=== PATIENT | female | born 1990 | race Caucasian/White ===

== ENCOUNTER 2017-06-10 09:42 | Emergency (ER) | payer OTHER ==
[~2017-06-10] VITALS: Ht 157.5 cm; Wt 59.0 kg
[~2017-06-10 09:42] MED LIST: ALBU90OI INH; BIRTH CONTROL; CYCL10 PO; DOXY100 PO; ERYT.5TO RIGHTEYE; HYDACE5 PO; HYDGUAL120 PO; IBUP600 PO; IBUP800 PO; KETO10 PO; Keflex500 MG PO; MULVITMINE PO; MUPI1NAS; ONDA4 PO; ONDA4ODT MM; ONDA8 PO; OXYACE5T PO; PENVK500 PO; Percocet 5-3251 EACH PO; RXONDA4ODT MM; Veetids 500500 MG PO; Verotin-Gr Cap1 EACH PO; YASMINE BCP; Zofran Odt4 MG SL
[2017-06-10] MEDS ORDERED: BENZ100A PO (11:27)
[2018-01-30] MEDS ORDERED: Keflex500 MG PO (17:15)
[2018-01-30] MEDS ORDERED: KETO10 PO (17:15)
== END 2017-06-10 12:36 | disposition home or self-care (01) ==
LOC: ER 09:42
DX: J06.9 Acute upper respiratory infection, unspecified (principal); Z88.2 Allergy status to sulfonamides; F41.9 Anxiety disorder, unspecified; F17.210 Nicotine dependence, cigarettes, uncomplicated
CPT/HCPCS: 99283

== ENCOUNTER 2019-01-22 16:20 | Emergency (ER) | payer OTHER ==
[~2019-01-22] VITALS: Ht 157.5 cm; Wt 59.0 kg
[~2019-01-22 16:20] MED LIST changes: -LEVFLO500 PO
[2019-01-22 18:52] LABS: Source, Urine Clean Catch
[2019-01-22 18:58] LABS: Bilirubin, Urine Neg (Neg); Blood, Urine 2+ (Neg); Glucose Qualitative, Urine Neg (Neg); Ketones, Urine 3+ (Neg); Leukocyte Esterase, Urine 2+ (Neg); Nitrite, Urine Neg (Neg); Protein, Urine 1+ (Neg); Urobilinogen, Urine 1+ (Normal)
[2019-01-22 18:59] LABS: Appearance, Urine Clear (Clear); Color, Urine Yellow (P-Yellow)
[2019-01-22 19:06] LABS: Bacteria Many /hpf; Red Blood Cells, Urine 0-2 /hpf (0-2); Squamous Epithelial Cells Few /hpf (Few); White Blood Cells, Urine 25-50 /hpf (0-5)
[2019-01-22] MEDS ORDERED: LEVFLO500 PO (20:04)
== END 2019-01-22 20:20 | disposition home or self-care (01) ==
LOC: ER 16:20
PROVIDERS: Physician Assistant
DX: E86.0 Dehydration (principal); K52.9 Noninfective gastroenteritis and colitis, unspecified; N39.0 Urinary tract infection, site not specified; F17.200 Nicotine dependence, unspecified, uncomplicated; Z88.2 Allergy status to sulfonamides
CPT/HCPCS: 36415; 81001; 81025; 83690; 84145; 86308; 87077; 87086; 87186; 96361; 96374; 96375; 99284-25; J1885; J2405; J7120

== ENCOUNTER → 2019-01-22 | Outpatient (CLI) | payer OTHER ==
[~2019-01-22] MED LIST changes: +BENZ100A PO; +LEVFLO500 PO
[2019-01-22 15:27] LABS: BASOPHILS ABSOLUTE AUTO 0.01 K/mm3 (0.00-0.23); BASOPHILS PERCENT AUTO 0 % (0-2); EOSINOPHILS PERCENT AUTO 0 % (0-6); Hematocrit 32.4 % (33.0-51.0); Hemoglobin 11.2 g/dL (11.5-16.0); IMMATURE GRAN ABSOLUTE AUTO 0.02 K/mm3 (0.00-0.10); IMMATURE GRAN PERCENT AUTO 0 % (0-1); LYMPHOCYTES PERCENT AUTO 18 % (21-46); MONOCYTES ABSOLUTE AUTO 0.73 K/mm3 (0.16-1.47); MONOCYTES PERCENT AUTO 14 % (4-13); Mean Corpuscular HGB 33.6 pg (26.0-34.0); Mean Corpuscular HGB Conc 34.6 g/dL (31.5-36.5); Mean Corpuscular Volume 97 fL (80-100); Mean Platelet Volume 10.5 fL (9.1-12.4); NEUTROPHILS ABSOLUTE AUTO 3.44 K/mm3 (1.96-9.15); NEUTROPHILS PERCENT AUTO 68 % (41-73); Platelet Count 160 K/mm3 (150-400); RDW Coefficient Variation 10.9 % (11.7-14.2); RDW Standard Deviation 39.1 fL (35.1-46.3); Red Blood Cell Count 3.33 M/mm3 (3.80-5.20)
[2019-01-22 15:37] LABS: Alanine Aminotransfer (ALT/SGP 29 U/L (12-78); Albumin, Blood 2.9 g/dL (3.4-5.0); Albumin/Globulin Ratio 0.7 (0.8-1.8); Alk Phos 68 U/L (40-126); Anion Gap 7 mmol/L (6-16); Aspartate Aminotrans (AST/SGOT 30 U/L (12-37); Bilirubin, Total 0.6 mg/dL (0.1-1.0); Blood Urea Nitrogen 6 mg/dL (8-24); Bun/Creatinine Ratio 7.1 (12.0-20.0); CO2, Blood 28 mmol/L (21-32); Calcium, Blood 7.8 mg/dL (8.5-10.1); Chloride, Blood 97 mmol/L (98-108); Creatinine, Blood 0.85 mg/dL (0.40-1.00); Globulin, Blood 3.9 g/dL (2.2-4.0); Glomerular Filtration Rate >60 (60-); Glucose, Blood 87 mg/dL (70-99); Potassium, Blood 3.7 mmol/L (3.5-5.5); Sodium, Blood 132 mmol/L (136-145); Total Protein, Blood 6.8 g/dL (6.4-8.2)
== END ==
LOC: LAB SHORT 15:20 → LAB EV 15:20
PROVIDERS: General Practice
DX: R53.81 Other malaise (principal)
CPT/HCPCS: 80053; 85025; 87077; 87081; 87086; 87186

== ENCOUNTER 2019-04-05 02:06 | Emergency (ER) | payer OTHER ==
[~2019-04-05] VITALS: Ht 157.5 cm; Wt 56.7 kg
[~2019-04-05 02:06] MED LIST changes: +LEVFLO500 PO
[2019-04-05] MEDS ORDERED: Augmentin 500-1 EACH PO (04:00)
== END 2019-04-05 04:43 | disposition home or self-care (01) ==
LOC: ER 02:06
DX: L02.412 Cutaneous abscess of left axilla (principal); F41.9 Anxiety disorder, unspecified; F17.200 Nicotine dependence, unspecified, uncomplicated; Z88.2 Allergy status to sulfonamides
CPT/HCPCS: 10060; 87070; 87075; 87077; 87147; 87186; 87205; 99283-25; A9270; A9270-GY

== ENCOUNTER 2019-05-05 10:22 | Emergency (ER) | payer OTHER ==
[~2019-05-05] VITALS: Ht 157.5 cm; Wt 54.4 kg
[~2019-05-05 10:22] MED LIST changes: +Augmentin 500-1 EACH PO
[2019-05-05] MEDS ORDERED: Monodox100 MG PO (10:58)
[2019-05-05] MEDS ORDERED: IBU800 MG PO (10:59)
== END 2019-05-05 11:12 | disposition home or self-care (01) ==
LOC: ER 10:22
DX: L02.411 Cutaneous abscess of right axilla (principal); F41.9 Anxiety disorder, unspecified; F17.200 Nicotine dependence, unspecified, uncomplicated; Z79.899 Other long term (current) drug therapy
CPT/HCPCS: 10060; 99283-25

== ENCOUNTER 2020-01-11 19:46 | Emergency (ER) | payer OTHER | END 2020-01-11 23:04 | disposition home or self-care (01) | LOC: ER 19:46 | DX: A60.00 Herpesviral infection of urogenital system, unspecified (principal); F17.210 Nicotine dependence, cigarettes, uncomplicated; Z88.2 Allergy status to sulfonamides ==

== ENCOUNTER 2020-09-14 02:44 | Inpatient (IN) | payer OTHER ==
[~2020-09-14] VITALS: Ht 160 cm; Wt 70.4 kg
[~2020-09-14 02:44] MED LIST changes: +IBU800 MG PO; +LIDO5TO TOP; +Monodox100 MG PO; +VALACYCLOVIR1000 M1 PO
[2020-09-14 04:24] LABS: BASOPHILS ABSOLUTE AUTO 0.02 K/mm3 (0.00-0.23); BASOPHILS PERCENT AUTO 0 % (0-2); EOSINOPHILS ABSOLUTE AUTO 0.08 K/mm3 (0.00-0.68); EOSINOPHILS PERCENT AUTO 1 % (0-6); Hematocrit 39.6 % (33.0-51.0); Hemoglobin 12.8 g/dL (11.5-16.0); IMMATURE GRAN ABSOLUTE AUTO 0.02 K/mm3 (0.00-0.10); IMMATURE GRAN PERCENT AUTO 0 % (0-1); LYMPHOCYTES ABSOLUTE AUTO 1.96 K/mm3 (0.84-5.20); LYMPHOCYTES PERCENT AUTO 25 % (21-46); MONOCYTES ABSOLUTE AUTO 0.62 K/mm3 (0.16-1.47); MONOCYTES PERCENT AUTO 8 % (4-13); Mean Corpuscular HGB 30.7 pg (26.0-34.0); Mean Corpuscular HGB Conc 32.3 g/dL (31.5-36.5); Mean Corpuscular Volume 95 fL (80-100); NEUTROPHILS ABSOLUTE AUTO 5.11 K/mm3 (1.96-9.15); NEUTROPHILS PERCENT AUTO 65 % (41-73); RDW Coefficient Variation 12.4 % (11.7-14.2); RDW Standard Deviation 42.7 fL (35.1-46.3); Red Blood Cell Count 4.17 M/mm3 (3.80-5.20); White Blood Cell Count 7.81 K/mm3 (4.00-11.30)
[2020-09-14 04:25] LABS: Mean Platelet Volume 10.5 fL (9.1-12.4); Platelet Count 146 K/mm3 (150-400)
[2020-09-14 04:29] LABS: U Amphetamine Screen DETECTED; U Barbituate Screen Not Detected; U Benzodiazapine Screen Not Detected; U Buprenorphine Screen Not Detected; U Cannabinoids Screen Not Detected; U Cocaine Screen Not Detected; U Methadone Screen Not Detected; U Methamphetamine Screen DETECTED; U Opiates Screen DETECTED; U Oxycodone Screen Not Detected; U Phencyclidine Screen Not Detected; U Propoxyphene Screen Not Detected
[2020-09-14 04:41] LABS: Alanine Aminotransfer (ALT/SGP 23 U/L (12-78); Albumin, Blood 3.5 g/dL (3.4-5.0); Albumin/Globulin Ratio 0.9 (0.8-1.8); Alk Phos 81 U/L (50-136); Anion Gap 4 mmol/L (6-16); Aspartate Aminotrans (AST/SGOT 30 U/L (12-37); Bilirubin, Total 0.5 mg/dL (0.1-1.0); Blood Urea Nitrogen 10 mg/dL (8-24); Bun/Creatinine Ratio 14.1 (12.0-20.0); CO2, Blood 27 mmol/L (21-32); Calcium, Blood 8.3 mg/dL (8.5-10.1); Chloride, Blood 105 mmol/L (98-108); Creatinine, Blood 0.71 mg/dL (0.40-1.00); Globulin, Blood 3.9 g/dL (2.2-4.0); Glomerular Filtration Rate >60 (60-); Glucose, Blood 110 mg/dL (70-99); Potassium, Blood 4.2 mmol/L (3.5-5.5); Sodium, Blood 136 mmol/L (136-145); Total Protein, Blood 7.4 g/dL (6.4-8.2)
[2020-09-14 06:32] LABS: SARS-Cov-2 (COVID-19) PCR, MMC NEGATIVE (NEGATIVE)
--- NOTE | 2020-09-14 08:45 | NUR ---
PT ARRIVED TO ROOM 232 FROM ER DEPT VIA GURNEY UNABLE TO TRANSFER DUE TO SEDATION PT MOANS WHEN HER L ARMS IS TOUCHED ELEV ON A PILLOW AT THE AC THE ARM IS RED AND SWOLLEN PT HAS A BLACK VINOD TO IT STATED IT IS NOT MARKER BUT TAPE PT UNABLE TO STAY AWAKE
--- NOTE | 2020-09-14 10:22 | NUR ---
DR PARRISH BY TO SEE PT
--- NOTE | 2020-09-14 11:47 | NUR ---
pt locked herself in the bathroom after getting out had blood on her r wrist asked her if she just used pt denied had a torch in her back pocket and a cl pouch in her hand day surg to get pt asked her out right if she just used pt denied
--- NOTE | 2020-09-14 11:59 | NUR ---
SECURITY CALLED TO REMOVE PT'S DRUGS AND SUPPLIES FROM THE ROOM WILL PLACE TAMPER TAPE ON IV WHEN SHE RETURNS FROM SURG
--- NOTE | 2020-09-14 12:28 | NUR ---
day ophthalmic surgeon just came with the iv pole to the room stated pt did report that she injected heroin in her r wrist and that why she had blood also did two hours prior supervisor cab notified and her purse is locked in our nurse discharge planner office security has her drugs and supplies supervisor cab rosy aware
--- NOTE | 2020-09-14 13:10 | NUR ---
09/14/20 1310 DANIEMARIA FERNANDA PT RECEIVED ANTIBIOTICS PRIOR TO PROCEDURE PER DR ORDERS.
--- NOTE | 2020-09-14 13:48 | NUR ---
PT IN ROOM 224 TO BE MONITORED WITH CAMERA BATHROOM LOCKED PT SLEEPING DID NOT WAKE UP PT HAS A BULKY DRESSING TO L ELBOW C/D/I ELEV ON PILLOW TAMPER TAPE PLACED TO IV CL ON BEDSIDE TABLE
--- NOTE | 2020-09-14 16:00 | NUR ---
PT JUST WOKE UP WANTING HER STUFF WILL CALL SECURITY GAVE PT SOME FOOD PER HER REQ TO EAT SOMETHING MORE THEN JELLO AND JUICE
--- NOTE | 2020-09-14 16:30 | NUR ---
SECURITY BY TO SEE PT REF TO LET THEM SEARCH HER BELONGINGS THEY TOLD HER THEY DISPOSED OF HER DRUGS AND SUPPLIES AND WILL PUT THE BAG SHE HAD WITH HER PURSE
--- NOTE | 2020-09-15 03:29 | NUR ---
SHIFT SUMMARY POD#1 LEFT ELBOW I+D. AAOX4/ANXIOUS. PT DROWSY THROUGH MOST OF NOC SHIFT. AWAKENS EASILY WITH VERBAL STIMULI, ONLY STAYS AWAKE BRIEFLY THEN QUICKLY APPEARS DROWSY AGAIN. PT REPORTING MINIMAL DISCOMFORT, DENIES NAUSEA/EMESIS. DRESSING TO MERRILL C/D/I. REPORTS TINGLING PRE AND POST OP, NO ACUTE CHANGE. IVF + ABX THROUGH 22G IV IN LEFT FOOT. BED ALARM ON FOR SAFETY + CAMERA MONITORING PER DR PARRISH'S REQUEST. PT CALLS INTERMITTENTLY, YELLS OUT FOR ASSISTANCE AT OTHER TIMES. PT EASILY AGGITATED THIS AM, ANXIOUS ABOUT GOING HOME. GOOD PO INTAKE + OUTPUT THIS AM. CURRENTLY PT IS RESTING IN BED WITH CALL LIGHT IN REACH.
--- NOTE | 2020-09-15 03:58 | NUR ---
AMA PT AWOKE AT 0335 DEMANDING TO LEAVE AMA. NURSING SALES MANAGER NOTIFIED. RISKS + BENEFITS OVERVIEWED WITH PT AND PT SIGNED AMA FORM WITH MARCK ANDERSON 2ND WITNESS. IV TO LEFT FOOT DC'D WNL. PT GIVEN VERBAL INSTRUCTIONS ON WOUND CARE, PT VERBALLY AGREED TO UNDERSTANDING. PT'S BELONGING GIVEN TO PT, CHANGED TO PERSONAL CLOTHING IN ROOM + DC'D INDEPENDENTLY WALKING OFF FLOOR AT 0355.
== END 2020-09-15 03:55 | disposition left against medical advice (07) | DRG 580 ==
LOC: ER 02:44 → SURS 06:02
PROVIDERS: Emergency Medicine; Surgery; ADMIT Internal Medicine
PROC: 0J9H0ZZ Drainage of Left Lower Arm Subcutaneous Tissue and Fascia, Open Approach (ICD-10-PCS; principal; 2020-09-14 11:30)
DX: L02.414 Cutaneous abscess of left upper limb (principal); Z16.21 Resistance to vancomycin; F15.20 Other stimulant dependence, uncomplicated; Z20.822 Contact with and (suspected) exposure to COVID-19; Z88.8 Allergy status to other drugs, medicaments and biological substances; Z88.2 Allergy status to sulfonamides
CPT/HCPCS: 36415; 73201; 80053; 81025; 83605; 85025; 87040; 87070; 87075; 87205; 96365-59; 96375-59; 99284-25; J0295; J1200; J2020; J2250; J2704; J3010; J3370; J7030; J7120; Q9967; U0004

== ENCOUNTER 2020-12-25 19:20 | Emergency (ER) | payer OTHER ==
[~2020-12-25] VITALS: Ht 157.5 cm; Wt 61.7 kg
[2020-12-25 22:22] LABS: BASOPHILS ABSOLUTE AUTO 0.01 K/mm3 (0.00-0.23); BASOPHILS PERCENT AUTO 0 % (0-2); EOSINOPHILS ABSOLUTE AUTO 0.07 K/mm3 (0.00-0.68); EOSINOPHILS PERCENT AUTO 1 % (0-6); Hematocrit 40.9 % (33.0-51.0); Hemoglobin 13.4 g/dL (11.5-16.0); IMMATURE GRAN ABSOLUTE AUTO 0.01 K/mm3 (0.00-0.10); IMMATURE GRAN PERCENT AUTO 0 % (0-1); LYMPHOCYTES ABSOLUTE AUTO 1.98 K/mm3 (0.84-5.20); LYMPHOCYTES PERCENT AUTO 28 % (21-46); MONOCYTES ABSOLUTE AUTO 0.51 K/mm3 (0.16-1.47); MONOCYTES PERCENT AUTO 7 % (4-13); Mean Corpuscular HGB 30.6 pg (26.0-34.0); Mean Corpuscular HGB Conc 32.8 g/dL (31.5-36.5); Mean Corpuscular Volume 93 fL (80-100); Mean Platelet Volume 10.4 fL (9.1-12.4); NEUTROPHILS ABSOLUTE AUTO 4.44 K/mm3 (1.96-9.15); NEUTROPHILS PERCENT AUTO 63 % (41-73); Platelet Count 213 K/mm3 (150-400); RDW Standard Deviation 44.7 fL (35.1-46.3); Red Blood Cell Count 4.38 M/mm3 (3.80-5.20); White Blood Cell Count 7.02 K/mm3 (4.00-11.30)
[2020-12-25 22:41] LABS: Alanine Aminotransfer (ALT/SGP 28 U/L (12-78); Albumin, Blood 3.7 g/dL (3.4-5.0); Albumin/Globulin Ratio 0.9 (0.8-1.8); Alk Phos 81 U/L (50-136); Anion Gap 4 mmol/L (6-16); Aspartate Aminotrans (AST/SGOT 19 U/L (12-37); Bilirubin, Total 0.4 mg/dL (0.1-1.0); Blood Urea Nitrogen 10 mg/dL (8-24); CO2, Blood 29 mmol/L (21-32); Calcium, Blood 8.8 mg/dL (8.5-10.1); Chloride, Blood 104 mmol/L (98-108); Creatinine, Blood 0.63 mg/dL (0.40-1.00); Globulin, Blood 4.2 g/dL (2.2-4.0); Glomerular Filtration Rate >60 (60-); Glucose, Blood 86 mg/dL (70-99); Potassium, Blood 3.9 mmol/L (3.5-5.5); Sodium, Blood 137 mmol/L (136-145); Total Protein, Blood 7.9 g/dL (6.4-8.2)
[2020-12-26] MEDS ORDERED: Cleocin HCl300 MG PO (00:17)
== END 2020-12-26 00:59 | disposition home or self-care (01) ==
LOC: ER 19:20
PROVIDERS: Emergency Medicine Emergency Medical Services
DX: L03.114 Cellulitis of left upper limb (principal); F17.210 Nicotine dependence, cigarettes, uncomplicated; Z88.2 Allergy status to sulfonamides; Z23 Encounter for immunization
CPT/HCPCS: 36415; 73120; 80053; 83605; 85025; 90471; 90714; 96365; 96375; 99284-25; J0690; J1885

== ENCOUNTER 2022-04-13 15:47 | Emergency (ER) | payer OTHER ==
[~2022-04-13] VITALS: Ht 157.5 cm; Wt 61.2 kg
[~2022-04-13 15:47] MED LIST changes: +Cleocin HCl300 MG PO
[2022-04-13] MEDS ORDERED: CLIN300 PO (16:21)
== END 2022-04-13 16:37 | disposition home or self-care (01) ==
LOC: ER 15:47
DX: L03.211 Cellulitis of face (principal); L02.01 Cutaneous abscess of face; F17.210 Nicotine dependence, cigarettes, uncomplicated; Z88.2 Allergy status to sulfonamides
CPT/HCPCS: A9270

== ENCOUNTER 2022-05-11 16:24 | Emergency (ER) | payer OTHER ==
[~2022-05-11] VITALS: Ht 157.5 cm; Wt 59.0 kg
[~2022-05-11 16:24] MED LIST changes: +CLIN300 PO
== END 2022-05-11 17:24 | disposition home or self-care (01) ==
LOC: ER 16:24
DX: H00.014 Hordeolum externum left upper eyelid (principal); F17.210 Nicotine dependence, cigarettes, uncomplicated; Z88.2 Allergy status to sulfonamides
CPT/HCPCS: 99283

== ENCOUNTER 2022-11-06 06:45 | Emergency (ER) | payer OTHER ==
[~2022-11-06] VITALS: Ht 160 cm; Wt 68.0 kg
[2022-11-06] MEDS ORDERED: Cleocin HCl300 MG PO (07:40)
[2022-11-06 07:52] VITALS: BP 90/77
== END 2022-11-06 07:53 | disposition home or self-care (01) ==
LOC: ER 06:45
DX: L03.211 Cellulitis of face (principal); L02.01 Cutaneous abscess of face; F17.210 Nicotine dependence, cigarettes, uncomplicated; Z88.2 Allergy status to sulfonamides
CPT/HCPCS: 99283; A9270

== ENCOUNTER → 2022-11-27 | Outpatient (CLI) | payer OTHER ==
[2022-11-28 09:32] LABS: Candida species (DNA Probe) Negative (NEGATIVE); G. vaginalis (DNA Probe) Positive (NEGATIVE); T. vaginalis (DNA Probe) Negative (NEGATIVE)
[2022-11-29 01:07] LABS: HBSAG SCREEN Negative (Negative); HCV ANTIBODY Reactive (Non Reactive); HIV AB/P24 AG SCREEN Non Reactive (Non Reactive)
[2022-11-30 12:09] LABS: CHLAMYDIA BY NAA Negative (Negative); GONOCOCCUS BY NAA Negative (Negative); TRICH VAG BY NAA Negative (Negative)
== END | disposition home or self-care (01) ==
LOC: LAB 15:00 → LAB SHORT 15:00
PROVIDERS: Registered Nurse Community Health
DX: Z11.3 Encounter for screening for infections with a predominantly sexual mode of transmission (principal); N89.8 Other specified noninflammatory disorders of vagina; Z20.2 Contact with and (suspected) exposure to infections with a predominantly sexual mode of transmission
CPT/HCPCS: 86592; 86803; 87340; 87389; 87480; 87491; 87510; 87591; 87660; 87661

== ENCOUNTER 2023-03-01 21:55 | Emergency (ER) | payer OTHER ==
[~2023-03-01] VITALS: Ht 157.5 cm; Wt 59.0 kg
[2023-03-01 21:57] VITALS: BP 103/67
[2023-03-01] MEDS ORDERED: CEPH500 PO (22:17)
== END 2023-03-01 22:40 | disposition home or self-care (01) ==
LOC: ER 21:55
DX: L03.317 Cellulitis of buttock (principal); F17.290 Nicotine dependence, other tobacco product, uncomplicated; Z88.2 Allergy status to sulfonamides
CPT/HCPCS: 99282; A9270

== ENCOUNTER 2023-03-04 12:42 | Emergency (ER) | payer OTHER ==
[~2023-03-04] VITALS: Ht 157.5 cm; Wt 61.2 kg
[~2023-03-04 12:42] MED LIST changes: +CEPH500 PO
[2023-03-04 12:54] VITALS: BP 104/80
[2023-03-04] MEDS ORDERED: CLIN300 PO ×2 (14:09→15:12)
== END 2023-03-04 14:30 | disposition home or self-care (01) ==
LOC: ER 12:42
DX: L02.31 Cutaneous abscess of buttock (principal); F17.290 Nicotine dependence, other tobacco product, uncomplicated; Z88.2 Allergy status to sulfonamides
CPT/HCPCS: 10060; 99283-25

== ENCOUNTER 2024-12-11 21:49 | Emergency (ER) | payer OTHER ==
[~2024-12-11] VITALS: Ht 157.5 cm; Wt 63.5 kg
[2024-12-11 21:54] VITALS: BP 119/75
[2024-12-11] MEDS ORDERED: CEPH500 PO (22:03)
[2024-12-11] MEDS ORDERED: RX Prepack 6 Tabs Oxycodone 5mg UD ONE (22:05)
== END 2024-12-11 22:30 | disposition home or self-care (01) ==
LOC: ER 21:49
DX: L02.414 Cutaneous abscess of left upper limb (principal); L03.114 Cellulitis of left upper limb; F17.290 Nicotine dependence, other tobacco product, uncomplicated; Z79.899 Other long term (current) drug therapy; Z88.2 Allergy status to sulfonamides
CPT/HCPCS: 99282; A9270

== ENCOUNTER → 2025-03-28 | Outpatient (CLI) | payer OTHER ==
[2025-03-29 12:55] LABS: Candida Group, PCR NOT DETECTED (NOT DETECT); Candida glabrata-krusei, PCR NOT DETECTED (NOT DETECT)
[2025-03-29 12:56] LABS: Bacterial Vaginosis PCR Positive (NEGATIVE)
[2025-03-29 13:28] LABS: Chlamydia Trachomatis Vaginal NOT DETECTED (NOT DETECT); Neisseria Gonorrhoea Vaginal NOT DETECTED (NOT DETECT)
[2025-03-30 18:42] LABS: HIV 1,2 COMBO ANTIGEN/ANTIBODY Negative (Negative)
== END ==
LOC: LAB SHORT 17:50 → LAB 17:50
PROVIDERS: Nurse Practitioner
DX: Z20.2 Contact with and (suspected) exposure to infections with a predominantly sexual mode of transmission (principal); N89.8 Other specified noninflammatory disorders of vagina
CPT/HCPCS: 81515; 86592; 87491; 87591